=== PATIENT | male | born 1975 | race Caucasian/White ===

== ENCOUNTER 2018-11-04 12:52 | Emergency (ER) | payer MEDICAID ==
[~2018-11-04] VITALS: Ht 182.9 cm; Wt 211.0 kg
[2018-11-04 13:12] VITALS: BP 116/83
[2018-11-04 13:44] LABS: CLARITY,URINE CLEAR (Clear); COLOR,URINE YELLOW (Yellow); GLUCOSE, URINE NEGATIVE (Neg); KETONES,URINE NEGATIVE (Neg); LEUKOCYTE ESTERASE ,URINE NEGATIVE (Neg); NITRITES, URINE NEGATIVE (Neg); OCCULT BLOOD,URINE NEGATIVE (Neg); PROTEIN,URINE NEGATIVE (Neg); UROBILINOGEN,URINE 0.2 E.U/dL (0.2-1.0)
[2018-11-04 13:50] LABS: UA COLLECTION TYPE CLN CATCH MIDSTREAM
--- NOTE | 2018-11-04 13:59 | NUR ---
BACK FROM CXR
[2018-11-04] MEDS ORDERED: ketorolac trometh inj. 60 MG/2 ML VIAL IM ONE (14:40)
[2018-11-04] MEDS ORDERED: LIDO700A32 TOP (14:41)
[2018-11-04] MEDS ORDERED: NAPR-56 PO (14:41)
== END 2018-11-04 15:21 | disposition home or self-care (01) ==
LOC: ER 12:52
DX: R07.81 Pleurodynia (principal); G89.29 Other chronic pain; Z79.899 Other long term (current) drug therapy
CPT/HCPCS: 71046; 81003; 96372; 99284; J1885

== ENCOUNTER 2018-11-09 10:02 | Emergency (ER) | payer MEDICAID ==
[~2018-11-09] VITALS: Ht 182.9 cm; Wt 98.2 kg
[~2018-11-09 10:02] MED LIST: LIDO700A32 TOP; NAPR-56 PO
[2018-11-09] MEDS ORDERED: ketorolac tromethamine 15mg/ml inj. IM ONE (10:45)
--- NOTE | 2018-11-09 10:49 | NUR ---
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
[2018-11-09] MEDS ORDERED: IBUP-1984 PO (11:26)
[2018-11-09] MEDS ORDERED: CYCL-1 PO (11:39)
[2018-11-09 11:44] VITALS: BP 123/79
== END 2018-11-09 11:40 | disposition home or self-care (01) ==
LOC: ER 10:03
DX: R07.81 Pleurodynia (principal); G89.29 Other chronic pain; Z79.899 Other long term (current) drug therapy
CPT/HCPCS: 71101; 96372; 99283; J1885

== ENCOUNTER 2019-02-18 14:29 | Emergency (ER) | payer MEDICAID ==
[~2019-02-18] VITALS: Ht 185.4 cm; Wt 105.0 kg
[~2019-02-18 14:29] MED LIST changes: +CYCL-1 PO; +LIDOcaine 1% w/EPI 1:100,000 30ml vial (MDV) ONE; -NAPR-56 PO
[2019-02-18 14:34] VITALS: BP 139/77
== END 2019-02-18 15:50 | disposition home or self-care (01) ==
LOC: ER 14:31
DX: S01.511A Laceration without foreign body of lip, initial encounter (principal); G89.29 Other chronic pain; F10.99 Alcohol use, unspecified with unspecified alcohol-induced disorder; Z79.899 Other long term (current) drug therapy; Y90.9 Presence of alcohol in blood, level not specified; Y04.8XXA Assault by other bodily force, initial encounter; Y93.89 Activity, other specified; Y92.89 Other specified places as the place of occurrence of the external cause; Y99.8 Other external cause status
CPT/HCPCS: 12013; 99283

== ENCOUNTER 2019-03-08 10:42 | Emergency (ER) | payer MEDICAID ==
[~2019-03-08] VITALS: Ht 182.9 cm; Wt 95.0 kg
[~2019-03-08 10:42] MED LIST changes: -LIDOcaine 1% w/EPI 1:100,000 30ml vial (MDV) ONE
[2019-03-08] MEDS ORDERED: normal saline 1000ML IV soln IVB ONE (11:05)
[2019-03-08] MEDS ORDERED: pantoprazole 40 MG vial IV ONE (11:05)
[2019-03-08] MEDS ORDERED: ondansetron/PF 4mg/2ml inj IV ONE (11:05)
[2019-03-08] MEDS ORDERED: famotidine/PF 10 mg/ml inj IV ONE (11:05)
[2019-03-08 11:21] LABS: BASOPHILS % (AUTO) 0.3 % (0-1); EOSINOPHILS # (AUTO) 0.2 X10'3 (0-0.9); EOSINOPHILS % (AUTO) 2.1 % (0-6); HEMATOCRIT 43.6 % (42.0-52.0); HEMOGLOBIN 14.7 g/dl (14.0-17.9); LYMPHOCYTES # (AUTO) 3.4 X10'3 (1.1-4.8); LYMPHOCYTES % (AUTO) 34.1 % (21-51); MEAN CORPUSCULAR HEMOGLOBIN 30.3 PG (27.0-31.0); MEAN CORPUSCULAR HGB CONC 33.7 g/dL (33.0-36.5); MEAN PLATELET VOLUME 7.7 FL (7.4-10.4); MONOCYTES # (AUTO) 0.7 X10'3 (0-0.9); MONOCYTES % (AUTO) 6.8 % (2-12); NEUTROPHILS # (AUTO) 5.6 X10'3 (1.8-7.7); NEUTROPHILS % (AUTO) 56.7 % (42-75); PLATELET COUNT 300 X10'3 (140-440); RED BLOOD COUNT 4.84 X10'6 (4.70-6.10); RED CELL DISTRIBUTION WIDTH 13.2 % (11.5-14.5); WHITE BLOOD COUNT 9.9 X10'3 (4.5-11.0)
[2019-03-08 11:36] LABS: ALANINE AMINOTRANSFERASE 31 U/L (12-78); ALBUMIN 4.1 G/DL (3.4-5.0); ALBUMIN/GLOBULIN RATIO 1.2 (1.1-1.5); ALKALINE PHOSPHATASE 88 IU/L (46-116); ANION GAP 8 (8-16); ASPARTATE AMINO TRANSFERASE 50 U/L (10-37); BILIRUBIN,TOTAL 0.3 MG/DL (0.1-1.0); BLOOD UREA NITROGEN 12 MG/DL (7-18); CALCIUM 8.4 MG/DL (8.5-10.1); CHLORIDE 106 MMOL/L (99-107); CREATININE 0.86 MG/DL (0.60-1.10); ETHANOL < 0.010 GM/DL (0.0-0.010); GLUCOSE 91 MG/DL (70-104); LIPASE 138 U/L (73-393); POTASSIUM 4.1 MMOL/L (3.5-5.1); SODIUM 140 MMOL/L (135-145); TOTAL CARBON DIOXIDE 25.9 MMOL/L (24-32); TOTAL PROTEIN 7.6 G/DL (6.4-8.2); eGFR > 90 ML/MIN
[2019-03-08] MEDS ORDERED: iohexol 300mg/ml 100ml inj. ONE (11:58)
[2019-03-08] MEDS ORDERED: CIPR-259 PO (12:51)
[2019-03-08] MEDS ORDERED: METR500T PO (12:51)
[2019-03-08 12:59] VITALS: BP 123/72
[2019-03-08 13:04] LABS: CLARITY,URINE CLEAR (Clear); COLOR,URINE YELLOW (Yellow); GLUCOSE, URINE NEGATIVE (Neg); KETONES,URINE NEGATIVE (Neg); LEUKOCYTE ESTERASE ,URINE NEGATIVE (Neg); NITRITES, URINE NEGATIVE (Neg); OCCULT BLOOD,URINE NEGATIVE (Neg); PROTEIN,URINE NEGATIVE (Neg); UROBILINOGEN,URINE 0.2 E.U/dL (0.2-1.0)
[2019-03-08 13:10] LABS: UA COLLECTION TYPE CLN CATCH MIDSTREAM
[2019-03-13 15:27] LABS: OCCULT BLOOD STOOL POSITIVE (Neg)
== END 2019-03-08 13:04 | disposition home or self-care (01) ==
LOC: ER 10:43
DX: K52.9 Noninfective gastroenteritis and colitis, unspecified (principal); K62.5 Hemorrhage of anus and rectum; R10.32 Left lower quadrant pain; G89.29 Other chronic pain
CPT/HCPCS: 36415; 74177; 80053; 80320; 81003; 83690; 85025; 96374; 96375; 99284; C9113; J2405; J3490; J7030; Q9967; 82272

== ENCOUNTER 2019-04-20 09:52 | Emergency (ER) | payer MEDICAID ==
[~2019-04-20] VITALS: Ht 182.9 cm; Wt 90.9 kg
[2019-04-20] MEDS ORDERED: normal saline 1000ml 1,000 ML IV ONE (11:10)
[2019-04-20] MEDS ORDERED: thiamine 100mg tablet PO ONE (11:15)
[2019-04-20] MEDS ORDERED: ondansetron/PF 4mg/2ml inj IV ONE (11:15)
[2019-04-20 11:22] LABS: BASOPHILS % (AUTO) 0.3 % (0-1); EOSINOPHILS % (AUTO) 0.3 % (0-6); HEMATOCRIT 47.4 % (42.0-52.0); HEMOGLOBIN 16.1 g/dl (14.0-17.9); LYMPHOCYTES # (AUTO) 2.2 X10'3 (1.1-4.8); LYMPHOCYTES % (AUTO) 21.8 % (21-51); MEAN CORPUSCULAR HEMOGLOBIN 30.9 PG (27.0-31.0); MEAN CORPUSCULAR HGB CONC 33.9 g/dL (33.0-36.5); MEAN CORPUSCULAR VOLUME 91.2 FL (78-98); MEAN PLATELET VOLUME 8.3 FL (7.4-10.4); MONOCYTES # (AUTO) 0.4 X10'3 (0-0.9); MONOCYTES % (AUTO) 3.7 % (2-12); NEUTROPHILS # (AUTO) 7.6 X10'3 (1.8-7.7); NEUTROPHILS % (AUTO) 73.9 % (42-75); PLATELET COUNT 305 X10'3 (140-440); RED CELL DISTRIBUTION WIDTH 13.3 % (11.5-14.5); WHITE BLOOD COUNT 10.3 X10'3 (4.5-11.0)
[2019-04-20 11:41] LABS: ALANINE AMINOTRANSFERASE 21 U/L (12-78); ALBUMIN 4.5 G/DL (3.4-5.0); ALBUMIN/GLOBULIN RATIO 1.4 (1.1-1.5); ALKALINE PHOSPHATASE 89 IU/L (46-116); ANION GAP 11 (8-16); ASPARTATE AMINO TRANSFERASE 19 U/L (10-37); BILIRUBIN,TOTAL 0.6 MG/DL (0.1-1.0); BLOOD UREA NITROGEN 11 MG/DL (7-18); BUN/CREATININE RATIO 10.5 (5.4-32.0); CALCIUM 8.6 MG/DL (8.5-10.1); CHLORIDE 107 MMOL/L (99-107); CREATININE 1.05 MG/DL (0.60-1.10); ETHANOL 0.279 GM/DL (0.0-0.010); GLUCOSE 114 MG/DL (70-104); LIPASE 75 U/L (73-393); POTASSIUM 3.3 MMOL/L (3.5-5.1); SODIUM 144 MMOL/L (135-145); TOTAL CARBON DIOXIDE 26.3 MMOL/L (24-32); TOTAL PROTEIN 7.7 G/DL (6.4-8.2); eGFR 76 ML/MIN
[2019-04-20] MEDS ORDERED: potassium Cl 20 mEq SR tablet PO ONE (11:50)
[2019-04-20 12:58] LABS: CLARITY,URINE CLEAR (Clear); COLOR,URINE STRAW (Yellow); GLUCOSE, URINE NEGATIVE (Neg); KETONES,URINE 15 mg/dl (Neg); LEUKOCYTE ESTERASE ,URINE NEGATIVE (Neg); NITRITES, URINE NEGATIVE (Neg); OCCULT BLOOD,URINE NEGATIVE (Neg); PROTEIN,URINE NEGATIVE (Neg); UROBILINOGEN,URINE 0.2 E.U/dL (0.2-1.0)
[2019-04-20 13:02] LABS: UA COLLECTION TYPE URINAL
[2019-04-20 14:21] VITALS: BP 140/80
== END 2019-04-20 14:25 | disposition home or self-care (01) ==
LOC: ER 09:53
DX: F10.129 Alcohol abuse with intoxication, unspecified (principal); R10.11 Right upper quadrant pain; G89.29 Other chronic pain; Z79.899 Other long term (current) drug therapy; Y90.0 Blood alcohol level of less than 20 mg/100 ml
CPT/HCPCS: 36415; 71045; 80053; 80320; 81003; 83690; 85025; 96374; 99284; J2405; J7030

== ENCOUNTER 2019-08-24 10:02 | Emergency (ER) | payer MEDICAID ==
[~2019-08-24] VITALS: Ht 182.9 cm; Wt 82.0 kg
[~2019-08-24 10:02] MED LIST changes: +LIDOcaine 1% W/epiNEPHrine 1:100,000 20ml vial ONE
[2019-08-24 10:09] VITALS: BP 123/73
[2019-08-24] MEDS ORDERED: DOXY100C76 PO (12:01)
[2019-08-24] MEDS ORDERED: TETanus/Pertussis (Acell)/Diphther VAC/PF (Tdap-Adult) 0.5ml syringe IMVAC ONE (12:05)
== END 2019-08-24 12:36 | disposition home or self-care (01) ==
LOC: ER 10:02
DX: L02.412 Cutaneous abscess of left axilla (principal); G89.29 Other chronic pain; Z79.899 Other long term (current) drug therapy
CPT/HCPCS: 10061; 90471; 90715; 99284